=== PATIENT | male | born 1960 | race Caucasian/White ===

== ENCOUNTER 2021-07-13 12:56 | Inpatient (IN) | payer OTHER ==
[~2021-07-13] VITALS: Ht 177.8 cm; Wt 100.7 kg
[2021-07-13 13:01] VITALS: BP 208/111
[2021-07-13 13:42] LABS: ABSOLUTE NEUTROPHILS 4.5 thou/uL (1.4-8.2); BASOPHILS 0.7 % (0.0-2.0); EOSINOPHILS 1.8 % (0.0-3.0); HEMOGLOBIN 16.2 gm/dL (14.0-18.0); LYMPHOCYTES 23.3 % (24.0-44.0); MCH 32.1 pg (26.0-34.0); MCHC 35.1 g/dL (28.0-37.0); MCV 91.5 fL (80.0-100.0); PLATELET COUNT 278 thou/uL (150-400); POLYS 65.2 % (36.0-66.0); RBC 5.03 mil/uL (4.50-6.00); RDW 13.4 % (10.5-14.5); WBC 6.9 thou/uL (4.0-11.0)
[2021-07-13 13:51] LABS: CALCIUM 9.3 mg/dL (8.5-10.1)
[2021-07-13 13:55] LABS: POTASSIUM 4.1 mmol/L (3.5-5.1)
[2021-07-13 14:11] LABS: URINE BILIRUBIN NEGATIVE (Negative); URINE BLOOD NEGATIVE (Negative); URINE CLARITY CLEAR; URINE COLOR YELLOW; URINE GLUCOSE-RANDOM* NEGATIVE (Negative); URINE KETONES NEGATIVE (Negative); URINE LEUKOCYTES-REFLEX NEGATIVE (Negative); URINE NITRITE-REFLEX NEGATIVE (Negative); URINE PROTEIN (DIPSTICK) NEGATIVE (Negative); URINE UROBILINOGEN 0.2 E.U./dl (0.2-1.0)
[2021-07-13 14:22] LABS: AMP/METHAMP Negative (Negative); BARBITURATES Negative (Negative); BENZODIAZEPINES Negative (Negative); COCAINE Negative (Negative); METHADONE Negative (Negative); OPIATES Negative (Negative); PCP Negative (Negative)
[2021-07-13 17:44] LABS: CHOLESTEROL 273 mg/dL (<200); HDL CHOLESTEROL 55 mg/dL (>40); LDL CHOLESTEROL 181 mg/dL (<100); TRIGLYCERIDE 188 mg/dL (<150); VLDL 38 mg/dL (<40)
[2021-07-13 19:00] VITALS: BP 144/83
[2021-07-14] VITALS (26 sets, daily range): BP systolic 94–180; BP diastolic 51–98
[2021-07-14 04:06] LABS: GLYCOHEMOGLOBIN (HGB A1C) 5.2 % (4.8-5.6)
[2021-07-14 05:07] LABS: CALCIUM 8.7 mg/dL (8.5-10.1); CREATININE 0.9 mg/dL (0.7-1.3); POTASSIUM 3.9 mmol/L (3.5-5.1)
--- NOTE | 2021-07-14 07:38 | EKG ---
[address] [address] ELECTROCARDIOGRAM REPORT Name: OLYA MONTALVO Room #: 246-P ADM IN M.R.#: [id number] Admission: 07/13/21 Attend Phys: Sravan Castillo MD Discharge: Date of : 58 Report #: [id number] [facility] ED Test Date: 2021-07-13 Test Time: 13:10:50 Pat Name: OLYA MONTALVO Department: Room: 246 Gender: M Java Lead: JARROD : 1960 Requested By: Felix Carreon Order Number: [id number] MD: Jim Savage Measurements Intervals [place] Rate: 87 P: 44 IL: 143 QRS: 40 QRSD: 86 T: 29 QT: 366 QTc: 441 Interpretive Statements Sinus rhythm No previous ECG available for comparison Electronically Signed On 07-14-2021 7:38:09 CANDY ROLLER by Jim Savage [email or web address] <ELECTRONICALLY SIGNED> By: Jim Savage MD, [facility] 07/14/21 0738 1310 1310 Jim Savage MD, FACC /EPI
--- NOTE | 2021-07-14 11:41 | NUR ---
INITIAL ASSESSMENT: LICO reviewed chart and spoke with nursing and attending physician. Case also discussed during ICU rounds. Pt was admitted from home due to HTN urgency. Pt to have echo and CTA today. Pt may be ready to discharge pending results. LICO met with pt at bedside. Introduced role of SW. Pt is alert/orientated x 4. Pt reports he lives at home alone. Pt recently moved to from [place] in April. Pt does not have a PCP and has been out of his medications for several weeks. Pt does not currently have health insurance. Pt states he was informed that he will have [employer] insurance starting 2021. Policy # provided to SW. Pt states that he has spoken with [employer] and he will contact business office to assist with payment options related to his current hospitalization. Pt states he will need assistance with medications at time of discharge. Case Mgmt dept to vouch for meds. SW to provide pt with a [facility] list and prescription discount card. SW encouraged pt to call [facility] to find in-network providers once his insurance is active. Pt verbalized understanding. Pt will have transportation home when discharged. Pt's new prescriptions to be sent to [facility], SW faxed face sheet to the pharmacy for review. Info placed in pt's discharge summary to review provided info and to find an in-network provider for primary care. Plan is for pt to discharge home when medically stable. LICO is following to assist as needed with discharge planning.
--- NOTE | 2021-07-14 12:08 | 2DMMODE ---
[facility] [place] [address] 2 D/M-MODE ECHOCARDIOGRAM Name: OLYA MONTALVO Room #: 246-P ADM IN M.R.#: [id number] Admission: 07/13/21 Attend Phys: Sravan Castillo MD Discharge: Date of : 58 Report #: [id number] THIS REPORT FOR: cc: LUCIUS - Viviana family physician/PCP LUCIUS - No family physician/PCP Jim Savage MD [facility] ~ ADDENDUM APPROVED REPORT Study performed: 07/14/2021 10:58:43 EXAM: Comprehensive 2D, Doppler, and color-flow Echocardiogram Patient Location: ICU Room #: 246 Status: routine BSA: 2.19 HR: 86 bpm BP: 117/71 mmHg Rhythm: NSR Other Information Study Quality: Adequate Indications Hypertensive urgency. 2D Dimensions RVDd: 32.84 mm IVSd: 10.59 (7-11mm) LVOT Diam: 21.11 (18-24mm) LVDd: 44.11 mm PWd: 8.67 (7-11mm) Ascending Ao: 32.34 (22-36mm) LVDs: 31.86 (25-40mm) Left Atrium: 35.07 (27-40mm) Aortic Root: 28.10 mm Volumes Left Atrial Volume (Systole) Single Plane 4CH: 37.72 mL Single Plane 2CH: 50.23 mL LA ESV Index: 21.00 mL/m2 Aortic Valve AoV Peak George.: 1.49 m/s AO Peak Gr.: 8.89 mmHg LVOT Max P.74 mmHg LVOT Max V: 1.09 m/s KEYUR Vmax: 2.55 cm2 [facility] [address] [place] [address] 2 D/M-MODE ECHOCARDIOGRAM Name: OLYA MONTALVO Room #: 246-P ADM IN ..#: [id number] Admission: 07/13/21 Attend Phys: Sravan Castillo, Discharge: Date of : 58 Report #: [id number] Mitral Valve E/A Ratio: 0.7 MV Decel. Time: 212.81 ms MV E Max George.: 0.76 m/s MV A George.: 1.02 m/s MV PHT: 61.72 ms IVRT: 65.74 ms Pulmonary Valve PV Peak George.: 1.22 m/s PV Peak Gr.: 5.99 mmHg Pulmonary Vein P Vein S: 0.63 m/s P Vein A: 0.37 m/s P Vein D: 0.42 m/s P Vein A Dur.: 110.7 msec P Vein S/D Ratio: 1.50 Tricuspid Valve RAP Estimate: 5.00 mmHg Left Ventricle The left ventricle is normal size. There is normal LV segmental wall motion. There is normal left ventricular wall thickness. Left ventricular systolic function is normal. LVEF is 55-60%. Mild diastolic dysfunction is present (impaired relaxation pattern). Right Ventricle The right ventricle is normal size. The right ventricular systolic function is normal. Atria The left atrium size is normal. The right atrium size is normal. Aortic Valve The aortic valve is normal in structure. No aortic regurgitation is present. There is no aortic valvular stenosis. Mitral Valve The mitral valve is normal in structure. There is no mitral valve regurgitation noted. No evidence of mitral valve stenosis. Tricuspid Valve The tricuspid valve is normal in structure. There is no tricuspid valve regurgitation noted. Unable to assess PA pressure. [facility] [address] [place] [address] 2 D/M-MODE ECHOCARDIOGRAM Name: OLYA MONTALVO Room #: 246-P ADM IN M.R.#: [id number] Admission: 07/13/21 Attend Phys: Sravan Castillo, Discharge: Date of : 58 Report #: [id number] Pulmonic Valve The pulmonary valve is normal in structure. There is no pulmonic valvular stenosis. Trace pulmonic regurgitation. Great Vessels The aortic root is normal in size. The ascending aorta is normal in size. IVC is normal in size and collapses >50% with inspiration. Pericardium There is no pericardial effusion. <Conclusion> Normal left ventricular size/wall thickness Ejection fraction 55% Grade 1 diastolic dysfunction Normal right ventricular size/function Normal atrial size Normal aortic/mitral valve structure and function No tricuspid valve insufficiency No pericardial effusion Normal aortic root size. <ELECTRONICALLY SIGNED> By: Jim Savage MD, FACC 07/14/211206 06 06 Jim Savage MD, FACC /INF
--- NOTE | 2021-07-14 13:19 | NUR ---
PT RESTING COMFORTABLY IN THE BEDSIDE CHAIR WATCHING TELEVISION AND USING HIS CELL PHONE. PT ABLE TO WALK UNDER OWN POWER WITH STAND BY ASSIST, PT HAS HAD 2 BM TODAY VIA COMMODE IN ROOM AND HAS VERY GOOD URINARY OUTPUT. WILL CONTINUE TO FOLLOW POC.
[2021-07-14] MEDS ORDERED: LIPITOR 20 MG T20 M1 PO (16:15)
[2021-07-14] MEDS ORDERED: LISINOPRIL20 MG PO (16:15)
== END 2021-07-14 16:58 | disposition home or self-care (01) | DRG 305 ==
LOC: ER 12:56 → EROBS 16:55 → ICU 19:03
PROVIDERS: Nurse Practitioner; Nurse Practitioner Family; ADMIT Internal Medicine; ATTEND Internal Medicine
DX: I16.0 Hypertensive urgency (principal); E78.5 Hyperlipidemia, unspecified; Z20.822 Contact with and (suspected) exposure to COVID-19; I10 Essential (primary) hypertension; J45.909 Unspecified asthma, uncomplicated; Z88.0 Allergy status to penicillin; Z88.8 Allergy status to other drugs, medicaments and biological substances
CPT/HCPCS: 10078